=== PATIENT | female | born 1935 | race Caucasian/White ===

== ENCOUNTER → 2016-07-05 | Outpatient (CLI) | payer MEDICARE | LOC: GMAL 17:22 | PROVIDERS: ATTEND Family Medicine | DX: N39.0 Urinary tract infection, site not specified (principal) ==

== ENCOUNTER → 2016-09-29 | Outpatient (CLI) | payer MEDICARE | END | disposition home or self-care (01) | LOC: GMAL 14:19 | PROVIDERS: ATTEND Family Medicine | DX: E55.9 Vitamin D deficiency, unspecified (principal) ==

== ENCOUNTER → 2017-06-01 | Outpatient (CLI) | payer MEDICARE | END | disposition home or self-care (01) | LOC: GMAL 10:46 | PROVIDERS: ATTEND Family Medicine | DX: D51.3 Other dietary vitamin B12 deficiency anemia (principal) ==

== ENCOUNTER → 2017-08-05 | Outpatient (CLI) | payer MEDICARE ==
--- NOTE | 2017-08-08 08:12 | RAD ---
EXAM DESCRIPTION: Abdomen Flat Upright CLINICAL HISTORY: CONSTIPATION COMPARISON: None. FINDINGS: AP supine and upright views of the abdomen show a nonspecific, nonobstructive bowel gas pattern with no evidence for free intraperitoneal air. No air-filled dilated loops of small bowel are seen. No significant air-fluid levels are identified. No obvious organomegaly is seen. Focal 5 mm calcification in the region of the left renal pelvis could represent vascular calcification versus nephrolithiasis. Mildly increased amount of formed fecal material is:. Vascular stents are seen at the expected location of the iliac artery bifurcation. Increased density in the left hemipelvis probably represents summation of densities. Visualized lung bases show chronic appearing peripheral interstitial nodular changes in the mid lung field that appears similar to prior examination. IMPRESSION: Nonspecific abdominal series Mild constipation or obstipation is seen. Interstitial changes in the lungs have a similar appearance to previous exam and likely represent chronic interstitial fibrotic disease. Electronically signed by: Geovanny Owens MD 08/08/2017 8:11 AM [employer]
--- NOTE | 2017-08-08 08:58 | US ---
EXAM DESCRIPTION: Abdomen,Complete CLINICAL HISTORY: ABD PAIN COMPARISON: None available. FINDINGS: Aorta: Nonaneurysmal. IVC: Visualized portions normal. Ascites: There is a trace amount of ascites adjacent to the spleen. Pancreas: Partially obscured by overlying bowel gas but visualized portions normal. Liver: The liver is diffusely hyperechoic without mass or other focal lesion. No intrahepatic biliary duct dilation. Physiologic flow is noted in the main portal vein. The liver was not measured, but appears enlarged. Gallbladder/Common Duct: No stones, wall thickening, pericholecystic fluid or common duct dilation. Right Kidney: No stones, hydronephrosis, atrophy or mass. Spleen: Spleen is at the upper limits of normal size, measuring just under 13 cm in length without mass or other focal lesion. Left Kidney: No stones, hydronephrosis, atrophy or mass. IMPRESSION: Diffuse fatty infiltration of the liver with hepatomegaly and borderline splenomegaly. No mass or other focal liver lesion. Trace amount of ascites adjacent to the spleen. Electronically signed by: Dalton Pickard MD 08/08/2017 8:57 AM [facility]
== END ==
LOC: US 08:00
PROVIDERS: ATTEND Family Medicine
DX: K59.01 Slow transit constipation (principal); R10.84 Generalized abdominal pain; R18.8 Other ascites; K59.00 Constipation, unspecified; K76.0 Fatty (change of) liver, not elsewhere classified

== ENCOUNTER 2017-10-03 11:10 | Emergency (ER) | payer MEDICARE ==
[2017-10-03 11:27] VITALS: TEMP 98
--- NOTE | 2017-10-03 12:18 | RAD ---
LEFT HIP HISTORY: fall COMPARISON: None FINDINGS: Two views of hip joint demonstrate anatomic bony alignment without fracture nor dislocation nor inflammatory erosion. Joint space is mildly narrowed. No soft tissue abnormality around hip joint. No bony injury in remainder of visualized hemipelvis. IMPRESSION: No bony injury in left hip Electronically signed by: Juan Garcia MD 10/03/2017 12:17 PM CDT
--- NOTE | 2017-10-03 12:20 | RAD ---
Left RIBS HISTORY: Fall FINDINGS: Three views of left-sided ribs and frontal view of the chest were obtained. Suboptimal image quality due to diffuse osteopenia. No obvious left-sided rib injury. No contusion or pneumothorax in either lung. Minimal to mild extent of chronic or interstitial fibrotic changes in both lungs. No pneumothorax. Visualized portions of thoracic vertebrae demonstrate maintained height. IMPRESSION: Suboptimal study. No obvious left-sided injury. Either chronic or fibrotic changes in both lungs. Electronically signed by: Juan Garcia MD 10/03/2017 12:19 PM CDT
--- NOTE | 2017-10-03 12:21 | CT ---
EXAM DESCRIPTION: Cervical Spine CLINICAL HISTORY: fall COMPARISON: None available. TECHNIQUE: Axial noncontast CT of the cervical spine with coronal and sagittal reformats. This exam was performed according to our departmental dose-optimization program, which includes automated exposure control, adjustment of the mA and/or kV according to patient size and/or use of iterative reconstruction technique. FINDINGS: There is anterior wedge compression fracture deformity of T10. Vertically oriented fracture in the anterior aspect of the vertebral body is seen. There does not appear to be obvious involvement of the posterior elements. No retropulsed fragment is identified. There is subtle questionable concavity of the superior plate of T2. Probable vertebral body hemangioma at C7 is seen. There is straightening of the normal cervical lordosis. The C1-2 relationship is maintained. No acute fracture or posttraumatic positional abnormality of the cervical spine is otherwise seen. No significant disc space narrowing. There is mild facet arthropathy at C4-5. No high-grade spinal canal stenosis or obvious foraminal encroachment is seen. Surgical clips in the left neck soft tissue are seen with mild left carotid and minimal right carotid calcifications. Low-attenuation nodules are seen in both lobes of the thyroid measuring less than 10 mm. No further imaging follow-up is recommended based on size of nodule and patient age. Visualized lung apices show worrisome pulmonary nodule in the left upper lobe measuring 14 mm that is incompletely visualized. IMPRESSION: CT evidence of acute compression fracture T1 with mild anterior wedging of the superior plate a vertically oriented anterior fracture. Question minimal anterior wedge compression fracture deformity of T2. Mild spondylitic changes of the cervical spine with straightening of the normal cervical lordosis. Partly visualized at least 14 mm pulmonary nodule in the left upper lobe worrisome for primary neoplastic process of the lung. Recommend nonemergent follow-up CT imaging of the chest. Findings on this exam were called to Dr. Jelani Cai at 10/03/2017 12:20 PM CDT. Electronically signed by: Geovanny Owens MD 10/03/2017 12:20 PM CDT
--- NOTE | 2017-10-03 12:23 | CT ---
EXAM DESCRIPTION: Head CLINICAL HISTORY: fall COMPARISON: None TECHNIQUE: Noncontrast transaxial CT images of the head are obtained from base to vertex. This exam was performed according to our departmental dose-optimization program, which includes automated exposure control, adjustment of the mA and/or kV according to patient size and/or use of iterative reconstruction technique. FINDINGS: The midline structures are not displaced. Sulci are age-appropriate. There are areas of decreased attenuation in the periventricular white matter and the white matter of the centrum semiovale. Small focus of decreased attenuation in the left thalamus measuring 8 mm probably represents age-indeterminate lacunar infarct versus prominent perivascular space. There is no evidence of mass, mass-effect, hydrocephalus, or acute intracranial hemorrhage. No abnormal extra axial fluid collection is seen. Bone windows show no evidence of depressed skull fracture. Moderate calcifications of the intracranial carotid arteries are seen. Question small right of midline posterior scalp soft tissue hematoma. Mild mucosal thickening of the ethmoid air cells.. IMPRESSION: 1. Age-appropriate atrophy with evidence of old small vessel ischemic type changes seen. 2. No acute abnormality is seen on noncontrast CT of the head. Electronically signed by: Geovanny Owens MD 10/03/2017 12:22 PM CDT
--- NOTE | 2017-10-03 12:24 | RAD ---
EXAM DESCRIPTION: Hip,Right 2 Views CLINICAL HISTORY: pain COMPARISON: None. IMPRESSION: 2 views of the right hip show no evidence of acute fracture, focal bone destruction, or joint dislocation. Mild joint space narrowing and sclerotic changes to the superior lateral acetabulum are seen consistent with mild osteoarthritic changes. Electronically signed by: Geovanny Owens MD 10/03/2017 12:22 PM CDT
[2017-10-03] MEDS ORDERED: SODIUM CHLORIDE 0.9% 1000ML 1,000 ML IVS ONE (13:00)
--- NOTE | 2017-10-03 13:53 | RAD ---
EXAM DESCRIPTION: Chest,1 View CLINICAL HISTORY: upper pulm nodule noted on ct COMPARISON: None available TECHNIQUE: Lateral view of the chest FINDINGS: A background of interstitial lung disease is observed. No pleural fluid is seen. The heart is within range of normal. IMPRESSION: Unremarkable lateral view of the chest. Electronically signed by: Francisco Go MD 10/03/2017 1:52 PM CDT
--- NOTE | 2017-10-03 14:00 | ED.PDOC ---
History of Present Illness - General Chief Complaint: Trauma Stated Complaint: trauma Time Seen by Provider: 10/03/17 11:34 Source: patient Exam Limitations: no limitations - History of Present Illness Initial Comments: The patient is an 82-year-old female presenting to the emergency room after multiple falls over the last week or 2. The patient fell last night when she got up in the middle of the night. The bathroom. He electively chose not to use her walker and did fall and she does have a small scab to her right posterior occipital area where she hit her head. No loss of consciousness. She does have some mild diffuse neck discomfort from the fall but no obvious step-off or deformity. No bruising. The patient also reports some mild left lower lateral rib discomfort from the fall as well as mild bilateral hip discomfort. She has been ambulatory with her walker since the fall. Timing/Duration: momentarily Severity: moderate Improving Factors: nothing Worsening Factors: nothing Associated Symptoms: malaise Allergies/Adverse Reactions: Allergies Ceftriaxone [From Rocephin] Allergy (Verified 10/03/17 11:27) Codeine Allergy (Verified 10/03/17 11:27) Vomitting Home Medications: Ambulatory Orders Carbidopa/Levodopa 10/100 [Sinemet 10/100] 1 ea PO PRN PRN 01/15/15 Cholecalciferol [Vitamin D3] 1,000 unit PO DAILY 01/15/15 Folic Acid 1 mg PO DAILY 01/15/15 Gemfibrozil 600 mg PO BID 01/15/15 Methotrexate Sodium [Methotrexate] 2.5 mg PO WKLY 01/15/15 Metoprolol Succinate [Toprol Xl] 75 mg PO DAILY 01/15/15 Simvastatin 80 mg PO DAILY 01/15/15 Ibuprofen 600 mg PO TID PRN #20 tab 01/21/15 Albuterol Sulfate Nebs [Proventil Nebs] 2.5 mg INH Q4HR PRN 10/03/17 Albuterol Sulfate Nebs [Proventil Nebs] 2.5 mg INH QID 10/03/17 Bumetanide [Bumex] 0.5 mg PO DAILY 10/03/17 Cyclobenzaprine HCl 10 mg PO TID PRN 10/03/17 Escitalopram [Lexapro] 10 mg PO DAILY 10/03/17 Esomeprazole Magnesium [Nexium] 20 mg PO DAILY 10/03/17 Febuxostat [Uloric] 40 mg PO DAILY 10/03/17 Lisinopril 20 mg PO BEDTIME 10/03/17 Pregabalin [Lyrica] 75 mg PO DAILY 10/03/17 Sucralfate Tab [Carafate Tab] 1 gm PO QID 10/03/17 Review of Systems - Review of Systems Constitutional: States: malaise EENTM: States: no symptoms reported Respiratory: States: no symptoms reported Cardiology: States: chest pain Gastrointestinal/Abdominal: States: no symptoms reported Genitourinary: States: no symptoms reported Musculoskeletal: States: see HPI Skin: States: no symptoms reported Neurological: States: headache - ild Endocrine: States: no symptoms reported All other Systems: No Change from Baseline Past Medical History (General) - Patient Medical History Hx Seizures: No Hx Stroke: No Hx Dementia: No Hx Asthma: No Hx of COPD: Yes Hx Cardiac Disorders: Yes - AK, stents x2 Hx Congestive Heart Failure: Yes Hx Pacemaker: No Hx Hypertension: Yes Hx Thyroid Disease: No Hx Diabetes: Yes Hx Gastroesophageal Reflux: Yes Hx Renal Disease: No Hx Cancer: No Hx of HIV: No Hx Hepatitis C: No Hx MRSA: No Surgical History: appendectomy, Hysterectomy, other - Vaccination History Hx Tetanus, Diphtheria Vaccination: No Hx Influenza Vaccination: Yes Hx Pneumococcal Vaccination: Yes - Social History Hx Tobacco Use: No Hx Chewing Tobacco Use: No Hx Alcohol Use: No Hx Substance Use: No Hx Substance Use Treatment: No Hx Depression: Yes Hx Physical Abuse: No Hx Emotional Abuse: No Hx Suspected Abuse: No - Female History Patient : No Family Medical History - Family History Mother Family History: No Known Living Status: Physical Exam - Physical Exam General Appearance: Alert, Comfortable, No apparent distress Eye Exam: bilateral normal Ears, Nose, Throat: hearing grossly normal, normal ENT inspection, normal pharynx Neck: full range of motion, other - see history of present illness Respiratory: lungs clear, normal breath sounds, no respiratory distress, no accessory muscle use Cardiovascular/Chest: normal peripheral pulses, regular rate, rhythm, no edema Peripheral Pulses: radial,right: 2+, radial,left: 2+, dorsalis pedis,right: 2+, dorsalis pedis,left: 2+ Gastrointestinal/Abdominal: non tender, soft Rectal Exam: deferred Back Exam: normal inspection, no CVA tenderness Extremity: no pedal edema, no calf tenderness, normal capillary refill, other - see history of present illness. No evidence of deformity about the hips. No crepitus. No obvious bruising. No length discrepancy. Active and passive range of motion are preserved. Neurologic: design agent II-XII nml as tested, alert, normal mood/affect, oriented x 3 Skin Exam: normal color Comments: Vital Signs - 24 hr 10/03/17 10/03/17 10/03/17 11:15 12:42 12:43 Temperature 98.0 F Pulse Rate [ 73 57 L 61 pulse ox] Respiratory 20 16 Rate Blood Pressure 112/68 153/73 122/45 [Left Arm] O2 Sat by Pulse 96 97 97 Oximetry Progress - Progress Progress: 10/03/17 14:02 the patient is a 82-year-old female presenting to the emergency room after a fall at home last night with multiple recurrent falls over the last couple of weeks. The patient does have some significant orthostasis with some [id number] acute renal failure. She needs to increase her fluid intake over the coming few days and hold her Bumex for at least the next 3 days. She should reduce her Bumex to twice weekly given today's findings. If she is still having evidence of orthostasis after this correction then consideration should be given towards reducing the metoprolol. The patient does have a small superior endplate compression fracture at T1 which should be reimaged in a couple of weeks if the patient is having any significant discomfort to see if she is going to require any intervention with this. For now no bracing is warranted. Additionally the patient will need to be set up in a couple of weeks with a contrasted CT scan of the chest for reevaluation of the left upper lung solitary nodule. Recovery of her baseline kidney function would be preferable before this study. ER warnings were given for any worsening. Follow- up with primary care doctorlater this week or early next week. - Results/Orders Results/Orders: EKG shows mild sinus bradycardia at a rate of 58 bpm. There is a mild T-wave inversion in lead aVL. Normal axis otherwise. Mild sinus arrhythmia otherwise. Laboratory Results - last 24 hr 10/03/17 10/03/17 10/03/17 12:27 12:27 12:46 WBC 7.1 RBC 3.53 L Hgb 10.6 L Hct 32.2 L MCV 91.3 MCH 30.0 MCHC 33.0 RDW 15.4 H Plt Count 223 MPV 7.8 Absolute Neuts (auto) 5.10 Absolute Lymphs (auto) 1.20 Absolute Monos (auto) 0.40 Absolute Eos (auto) 0.40 Absolute Basos (auto) 0.10 Neutrophils % 71.0 Lymphocytes % 16.6 L Monocytes % 5.2 Eosinophils % 5.8 H Basophils % 1.4 Sodium 138 Potassium 4.6 Chloride 106 Carbon Dioxide 25 Anion Gap 11.6 L BUN 49 H Creatinine 1.53 H BUN/Creatinine Ratio 32.0 H Random Glucose 87 Serum Osmolality 288.0 Calcium 9.8 Magnesium 2.3 Total Bilirubin 0.4 AST 22 ALT 14 Alkaline Phosphatase 57 Creatine Kinase 75 CK-MB (CK-2) 1.8 CK-MB (CK-2) % Not Reportable Troponin I < 0.02 B-Natriuretic Peptide 98.6 Serum Total Protein 7.4 Albumin 3.8 Globulin 3.6 H Albumin/Globulin Ratio 1.1 Urine Color Yellow Urine Appearance Clear Urine pH 5.5 Ur Specific [place] 1.025 Urine Protein >=300 H Urine Glucose (UA) Negative Urine Ketones Negative Urine Blood Negative Urine Nitrite Negative Urine Bilirubin Negative Urine Urobilinogen 0.2 Ur Leukocyte Esterase Negative Urine RBC 0 Urine WBC 0 Ur Epithelial Cells 1-3 Urine Bacteria 0 x-ray of the hips and chest show no evidence of any acute trauma. There are chronic osteoarthritic changes. CT scan of the head shows no evidence of any acute trauma intracranially. CT scan of the cervical spine shows no pathology that is acute of the cervical spine however there does appear to be a mild T1 superior endplate compression fracture. She does also incidentally have a 1.4 cm nodule to the left upper lobe does appear abnormal. Departure - Departure Clinical Impression: Compression fracture of body of thoracic vertebra, Orthostasis, Solitary lung nodule Disposition: Discharge to Home or Self Care Condition: Fair Departure Forms: ED Discharge - Pt. Copy, Patient Portal Self Enrollment Diet: regular diet Activity: increase activity as tolerated Referrals: Francisco Bradshaw III, MD [Primary Care Provider] - 1-2 Weeks Home Medications: Ambulatory Orders Carbidopa/Levodopa [Sinemet ] 1 ea PO PRN PRN 01/15/15 Cholecalciferol [Vitamin D3] 1,000 unit PO DAILY 01/15/15 Folic Acid 1 mg PO DAILY 01/15/15 Gemfibrozil 600 mg PO BID 01/15/15 Methotrexate Sodium [Methotrexate] 2.5 mg PO WKLY 01/15/15 Metoprolol Succinate [Toprol Xl] 75 mg PO DAILY 01/15/15 Simvastatin 80 mg PO DAILY 01/15/15 Ibuprofen 600 mg PO TID PRN #20 tab 01/21/15 Albuterol Sulfate Nebs [Proventil Nebs] 2.5 mg INH Q4HR PRN 10/03/17 Albuterol Sulfate Nebs [Proventil Nebs] 2.5 mg INH QID 10/03/17 Bumetanide [Bumex] 0.5 mg PO DAILY 10/03/17 Cyclobenzaprine HCl 10 mg PO TID PRN 10/03/17 Escitalopram [Lexapro] 10 mg PO DAILY 10/03/17 Esomeprazole Magnesium [Nexium] 20 mg PO DAILY 10/03/17 Febuxostat [Uloric] 40 mg PO DAILY 10/03/17 Lisinopril 20 mg PO BEDTIME 10/03/17 Pregabalin [Lyrica] 75 mg PO DAILY 10/03/17 Sucralfate Tab [Carafate Tab] 1 gm PO QID 10/03/17 Additional Instructions: the patient is a 82-year-old female presenting to the emergency room after a fall at home last night with multiple recurrent falls over the last couple of weeks. The patient does have some significant orthostasis with some [id number] acute renal failure. She needs to increase her fluid intake over the coming few days and hold her Bumex for at least the next 3 days. She should reduce her Bumex to twice weekly given today's findings. If she is still having evidence of orthostasis after this correction then consideration should be given towards reducing the metoprolol. The patient does have a small superior endplate compression fracture at T1 which should be reimaged in a couple of weeks if the patient is having any significant discomfort to see if she is going to require any intervention with this. For now no bracing is warranted. Additionally the patient will need to be set up in a couple of weeks with a contrasted CT scan of the chest for reevaluation of the left upper lung solitary nodule. Recovery of her baseline kidney function would be preferable before this study. ER warnings were given for any worsening. Follow- up with primary care doctorlater this week or early next week.
[2017-10-03 14:27] VITALS: BP 150/91; O2SAT 95
== END 2017-10-03 14:27 | disposition home or self-care (01) ==
LOC: ER 11:10
DX: S22.019A Unspecified fracture of first thoracic vertebra, initial encounter for closed fracture (principal); R91.1 Solitary pulmonary nodule; I95.1 Orthostatic hypotension; E11.9 Type 2 diabetes mellitus without complications; K21.9 Gastro-esophageal reflux disease without esophagitis; N17.9 Acute kidney failure, unspecified; I25.2 Old myocardial infarction; I11.0 Hypertensive heart disease with heart failure; I50.9 Heart failure, unspecified; R00.1 Bradycardia, unspecified; R07.81 Pleurodynia; M54.2 Cervicalgia; Z79.899 Other long term (current) drug therapy; W19.XXXA Unspecified fall, initial encounter; Z91.81 History of falling; Y92.009 Unspecified place in unspecified non-institutional (private) residence as the place of occurrence of the external cause; Z98.61 Coronary angioplasty status

== ENCOUNTER → 2017-10-31 | Outpatient (CLI) | payer MEDICARE | LOC: BFHH 09:42 | PROVIDERS: ATTEND Family Medicine | DX: E53.8 Deficiency of other specified B group vitamins (principal); E55.9 Vitamin D deficiency, unspecified; I13.10 Hypertensive heart and chronic kidney disease without heart failure, with stage 1 through stage 4 chronic kidney disease, or unspecified chronic kidney disease; E11.22 Type 2 diabetes mellitus with diabetic chronic kidney disease; I50.9 Heart failure, unspecified; M06.9 Rheumatoid arthritis, unspecified; N18.9 Chronic kidney disease, unspecified; J44.9 Chronic obstructive pulmonary disease, unspecified; F32.9 Major depressive disorder, single episode, unspecified ==

== ENCOUNTER → 2017-11-03 | Outpatient (CLI) | payer MEDICARE | LOC: GMAL 16:42 | PROVIDERS: ATTEND Family Medicine | DX: D64.9 Anemia, unspecified (principal) ==

== ENCOUNTER → 2017-12-01 | Outpatient (CLI) | payer MEDICARE | LOC: GMAL 14:45 | PROVIDERS: ATTEND Family Medicine | DX: D52.9 Folate deficiency anemia, unspecified (principal); D64.9 Anemia, unspecified ==

== ENCOUNTER → 2018-03-31 | Outpatient (CLI) | payer MEDICARE ==
--- NOTE | 2018-04-02 09:48 | MRI ---
Study: MRI of the Right Knee. Indication: KNEE PAIN Technique: Multiplanar, multi sequence MRI of the right knee was obtained without intravenous contrast. Comparison: None. Findings: ACL, PCL, MCL, and lateral collateral ligament complex intact. Oblique undersurface tear posterior horn medial meniscus. Subtle free edge fraying body lateral meniscus. Areas of grade 2 and 3 chondral thinning lateral and medial knee compartments but with mild grade 4 chondrosis and subchondral marrow change at the posterior nonweightbearing margin medial femoral condyle. Insertional quadriceps tendinosis with mild interstitial fissuring. Patellar tendon intact. Patella normally located. Multifocal grade 4 chondral fissuring throughout the patellar apex. Moderate size knee effusion. No acute fracture. Impression: Oblique undersurface tear posterior horn medial meniscus. Insertional quadriceps tendinosis with mild interstitial fissuring. 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 Moderate size knee effusion. Electronically signed by: Delvin Garcia MD 04/02/2018 9:46 AM CDT
== END ==
LOC: GMAL 12:04
PROVIDERS: ATTEND Family Medicine
DX: S83.241A Other tear of medial meniscus, current injury, right knee, initial encounter (principal); S76.111A Strain of right quadriceps muscle, fascia and tendon, initial encounter; M94.8X6 Other specified disorders of cartilage, lower leg; M25.461 Effusion, right knee; D64.9 Anemia, unspecified; N18.9 Chronic kidney disease, unspecified; I13.10 Hypertensive heart and chronic kidney disease without heart failure, with stage 1 through stage 4 chronic kidney disease, or unspecified chronic kidney disease; E11.22 Type 2 diabetes mellitus with diabetic chronic kidney disease; E78.4 Other hyperlipidemia

== ENCOUNTER → 2018-04-18 | Outpatient (CLI) | payer MEDICARE | LOC: GMATM 17:11 | PROVIDERS: ATTEND Nurse Practitioner Family | DX: R30.0 Dysuria (principal) ==

== ENCOUNTER → 2018-06-28 | Outpatient (CLI) | payer MEDICARE | LOC: GMAL 17:00 | PROVIDERS: ATTEND Family Medicine | DX: M25.50 Pain in unspecified joint (principal) ==

== ENCOUNTER → 2018-09-28 | Outpatient (CLI) | payer MEDICARE ==
--- NOTE | 2018-09-28 17:40 | RAD ---
EXAM DESCRIPTION: Foot,Left 3 Views CLINICAL HISTORY: 83 years, Female, S92.355D COMPARISON: None TECHNIQUE: Three views left foot FINDINGS: The bones are osteopenic. Mild degenerative changes are present. An oblique mildly displaced mid shaft fracture of the fifth metatarsal is present. Very little angulation is present. Additional fractures or deformities are not apparent. Mild plantar calcaneal spurring noted. IMPRESSION: Oblique fracture midshaft fifth metatarsal with minimal displacement. Electronically signed by: Irwin Alford MD 09/28/2018 5:37 PM CDT
== END ==
LOC: RAD 09:53
PROVIDERS: ATTEND Orthopaedic Surgery
DX: S92.355D Nondisplaced fracture of fifth metatarsal bone, left foot, subsequent encounter for fracture with routine healing (principal)

== ENCOUNTER → 2018-10-27 | Outpatient (CLI) | payer MEDICARE ==
--- NOTE | 2018-10-27 15:13 | RAD ---
EXAM DESCRIPTION: Foot,Left 3 Views CLINICAL HISTORY: S92.355D foot pain follow-up fracture COMPARISON: September 28, 2018 IMPRESSION: 3 views of the left foot show mildly displaced obliquely oriented fracture of the mid fifth metatarsal unchanged in appearance from previous exam. No significant periosteal reaction or bridging callus formation is seen to suggest significant healing. Small plantar enthesophyte of the calcaneus is seen. Moderate osteoarthritic changes of the interphalangeal joints of the second through fifth digits are seen. Mild bunion deformity of the medial aspect of the first metatarsal head is seen. Electronically signed by: Geovanny Owens MD 10/27/2018 3:12 PM CDT
== END ==
LOC: RAD 08:40
PROVIDERS: ATTEND Orthopaedic Surgery
DX: S92.355D Nondisplaced fracture of fifth metatarsal bone, left foot, subsequent encounter for fracture with routine healing (principal); M19.072 Primary osteoarthritis, left ankle and foot; M77.32 Calcaneal spur, left foot; M21.612 Bunion of left foot

== ENCOUNTER → 2019-01-18 | Outpatient (CLI) | payer MEDICARE | LOC: GMAL 14:28 | PROVIDERS: ATTEND Family Medicine | DX: D51.3 Other dietary vitamin B12 deficiency anemia (principal); R53.83 Other fatigue; E55.9 Vitamin D deficiency, unspecified; I10 Essential (primary) hypertension; E11.22 Type 2 diabetes mellitus with diabetic chronic kidney disease; E78.00 Pure hypercholesterolemia, unspecified ==

== ENCOUNTER → 2019-05-02 | Outpatient (CLI) | payer MEDICARE | LOC: GMAL 15:10 | PROVIDERS: ATTEND Family Medicine | DX: L03.031 Cellulitis of right toe (principal) ==

== ENCOUNTER → 2019-09-07 | Outpatient (CLI) | payer MEDICARE | DX: S09.90XA Unspecified injury of head, initial encounter (principal); M85.2 Hyperostosis of skull; G93.9 Disorder of brain, unspecified; J32.9 Chronic sinusitis, unspecified ==

== ENCOUNTER → 2020-04-23 | Outpatient (CLI) | payer MEDICARE | LOC: BFHH 14:39 | PROVIDERS: ATTEND Family Medicine | DX: E11.42 Type 2 diabetes mellitus with diabetic polyneuropathy (principal); R30.0 Dysuria; I13.0 Hypertensive heart and chronic kidney disease with heart failure and stage 1 through stage 4 chronic kidney disease, or unspecified chronic kidney disease; N18.2 Chronic kidney disease, stage 2 (mild); D64.9 Anemia, unspecified ==

== ENCOUNTER → 2020-05-09 | Outpatient (CLI) | payer MEDICARE ==
--- NOTE | 2020-05-09 16:48 | CT ---
EXAM DESCRIPTION: Chest w/o Contrast CLINICAL HISTORY: PULMONARY NODULES COMPARISON: April 27, 2020 TECHNIQUE: Noncontrast transaxial CT images of the chest are obtained. This exam was performed according to our departmental dose-optimization program, which includes automated exposure control, adjustment of the mA and/or kV according to patient size and/or use of iterative reconstruction technique . FINDINGS: The heart is enlarged. Severe coronary artery calcifications. Moderate to severe scattered calcified plaque of the thoracic aorta with findings that could indicate partial aortic dissection or moderate mural thrombus in the descending thoracic aorta is again seen. No pleural or pericardial effusion. Visualized portion of the upper abdomen shows nonobstructing left nephrolithiasis. The adrenal glands are unremarkable. Small hiatal hernia. Small fluid in the esophagus suggests gastroesophageal reflux Borderline right precarinal lymph node measures 9 mm short axis. Calcified pulmonary nodules in the right lower lobe. Lungs are normally aerated. Multiple bilateral noncalcified pulmonary nodules are unchanged in size and number from previous measuring maximum 1.4 cm on the left and 1.8 cm on the right. Mild centrilobular emphysematous changes are seen. Moderate peripheral interstitial thickening in the lungs more prominent in the upper lobes with mild honeycomb appearance in the upper lobes and posterior right lower lobe superior segment. Osseous structures are diffusely osteopenic. Healed left mid rib fracture. No aggressive bony lesions. Compression fracture deformity at T3. IMPRESSION: Multiple bilateral noncalcified pulmonary nodules concerning for metastatic disease. Recommend tissue sampling if not performed since previous exam. Moderate emphysematous changes to the chest are seen with lung fibrosis. Severe coronary artery calcifications and severe coronary artery disease is again seen. Moderate to severe scattered calcified plaque of the thoracic aorta with findings that could indicate partial aortic dissection or moderate mural thrombus in the descending thoracic aorta is again seen. Electronically signed by: Geovanny Owens MD 05/09/2020 4:46 PM [employer]
== END ==
LOC: CT 10:00
PROVIDERS: ATTEND Family Medicine
DX: J98.4 Other disorders of lung (principal); R91.8 Other nonspecific abnormal finding of lung field; J43.9 Emphysema, unspecified; I25.10 Atherosclerotic heart disease of native coronary artery without angina pectoris; I70.0 Atherosclerosis of aorta

== ENCOUNTER → 2020-06-11 | Outpatient (CLI) | payer MEDICARE | LOC: BFHH 17:41 | PROVIDERS: ATTEND Family Medicine | DX: J44.9 Chronic obstructive pulmonary disease, unspecified (principal); R91.1 Solitary pulmonary nodule; L98.8 Other specified disorders of the skin and subcutaneous tissue; E11.22 Type 2 diabetes mellitus with diabetic chronic kidney disease; I25.10 Atherosclerotic heart disease of native coronary artery without angina pectoris; I50.22 Chronic systolic (congestive) heart failure; D64.9 Anemia, unspecified; M05.89 Other rheumatoid arthritis with rheumatoid factor of multiple sites ==

== ENCOUNTER → 2020-06-13 | Outpatient (CLI) | payer MEDICARE | LOC: GMAL 13:05 | PROVIDERS: ATTEND Family Medicine | DX: D64.9 Anemia, unspecified (principal); I13.10 Hypertensive heart and chronic kidney disease without heart failure, with stage 1 through stage 4 chronic kidney disease, or unspecified chronic kidney disease; N18.9 Chronic kidney disease, unspecified ==